=== PATIENT | female | born 1965 | race Asian ===

== ENCOUNTER 2020-03-30 16:18 | Inpatient (IN) | payer BC ==
[~2020-03-30] VITALS: Ht 160 cm; Wt 44.5 kg
[2020-03-30 17:48] LABS: BASOPHIL % 0.2 % (0-2); PLATELET COUNT 180 x10^3mcL (130-400); RED CELL DISTRIBUTION WIDTH 13.5 % (11.5-14.5)
[2020-03-30 18:04] LABS: CALCIUM 7.8 mg/dL (8.5-10.1); CARBON DIOXIDE 37.1 mmol/L (21-32); CHLORIDE SERUM 103 mmol/L (98-107); CREATININE SERUM 0.8 mg/dL (0.6-1.0); GFR1 > 60 mL/min; GLUCOSE SERUM 162 mg/dL (74-106); POTASSIUM SERUM 3.5 mmol/L (3.5-5.1); SODIUM SERUM 140 mmol/L (136-145)
[2020-03-30 18:08] LABS: ALKALINE PHOSPHATASE 89 U/L (46-116); ALT/SGPT 55 U/L (14-59); AST/SGOT 29 U/L (15-37); BILIRUBIN TOTAL 0.23 mg/dL (0.20-1.00); C REACTIVE PROTEIN 1.9 mg/dL (<=0.9); LACTIC DEHYDROGENASE (LDH) 168 U/L (100-190); TOTAL PROTEIN, SERUM 6.3 g/dL (6.4-8.2)
[2020-03-30 18:12] LABS: ALBUMIN 3.1 g/dL (3.4-5.0)
[2020-03-30] MEDS ORDERED: HORIZANT300 MG PO (19:42)
[2020-03-30] MEDS ORDERED: LIALDA1.2 GM PO (19:43)
[2020-03-30] MEDS ORDERED: VENLAFAXINE HY150 M2 PO (19:43)
[2020-03-30] MEDS ORDERED: BUTALBITAL ACE PO (19:44)
[2020-03-30] MEDS ORDERED: CLARITIN10 MG PO (19:45)
[2020-03-30] MEDS ORDERED: EFFEXOR-XR75 MG PO (19:46)
[2020-03-30] MEDS ORDERED: AROMASIN25 MG PO (19:47)
[2020-03-30] MEDS ORDERED: OXYCODONE HCL10 MG PO (19:47)
[2020-03-30] MEDS ORDERED: COLACE100 MG PO (19:47)
[2020-03-30] MEDS ORDERED: TRAZODONE150 M1 (19:48)
[2020-03-30] MEDS ORDERED: XAN25 PO (19:49)
[2020-03-30] MEDS ORDERED: ACID REDUCER20 MG PO (19:49)
[2020-03-30] MEDS ORDERED: PROTONIX TR40 M1 PO (19:50)
[2020-03-30] MEDS ORDERED: DICYCLOMINE HYD10 M1 PO (19:50)
[2020-03-30] MEDS ORDERED: COMPAZINE10 M1 PO (19:50)
[2020-03-30 20:33] LABS: UA SPECIFIC GRAVITY <=1.005 (1.005-1.035); microscopic required? YES; urine erythrocyte TRACE (NEGATIVE)
[2020-03-30 21:01] VITALS: BP 126/84
[2020-03-30 21:12] VITALS: Ht 160 cm; Wt 44.5 kg
[2020-03-31 04:51] VITALS: BP 149/79
[2020-03-31 08:00] VITALS: BP 133/82
[2020-03-31] MEDS ORDERED: HORIZANT300 MG PO ×2 (11:32→15:56)
[2020-03-31] MEDS ORDERED: BUTALBITAL ACE PO ×2 (11:35→15:56)
[2020-03-31] MEDS ORDERED: XAN25 PO ×3 (11:38→16:21)
[2020-03-31 12:34] VITALS: BP 138/74
[2020-03-31 14:22] LABS: AMPHETAMINE QUAL UR NONE DETECTED (See below)
[2020-03-31] MEDS ORDERED: ASPERCREME1 EACH TOP (14:52)
[2020-03-31] MEDS ORDERED: FIORICET1 CAP PO (16:21)
== END 2020-03-31 18:02 | disposition home or self-care (01) | DRG 917 ==
LOC: ED 16:18 → DU 19:14
PROVIDERS: Emergency Medicine; ADMIT Family Medicine; ATTEND Family Medicine
DX: T40.0X1A Poisoning by opium, accidental (unintentional), initial encounter (principal); G92 Toxic encephalopathy; Z20.828 Contact with and (suspected) exposure to other viral communicable diseases; C50.911 Malignant neoplasm of unspecified site of right female breast; D64.9 Anemia, unspecified; Z90.11 Acquired absence of right breast and nipple; Y92.89 Other specified places as the place of occurrence of the external cause
CPT/HCPCS: 36600; 83880; 87804; C9113; G0378; J0500; J1644; J2310; J2405; J7030; Q0092; U0003-CS